=== PATIENT | female | born 1955 | race Caucasian/White ===

== ENCOUNTER → 2019-01-13 | Outpatient (CLI) | payer BC ==
[~2019-01-13] MED LIST: Iopamidol 612 MG/ML 50 ML SDV IVPUSH ONE; Lidocaine 1% 30 ML SDV INJECT ONE; methylPREDNISolone Acetate 40 MG/ML SDV INJECT ONE
--- NOTE | 2019-01-13 13:41 | CR ---
CLINICAL HISTORY: 63-year-old female with bilateral hip pain (L>R). TECHNIQUE: Patient counseled regarding the hip injection procedure including attendant risks of infection, pain, bleeding, contrast reaction. Employing sterile technique and 1% Xylocaine skin anesthesia a 22-gauge needle was placed in the left hip joint (third pass, fluoroscopic guidance) and after confirming intra-articular location (nonionic Isovue contrast) a total of 5 cc 1% lidocaine +80 mg Depo-Medrol was satisfactorily introduced into the left hip joint. Spot films recorded in the PACS system [place], [place] for record. Patient tolerated the procedure extremely well and left the department in stable condition with instructions to observe for any signs of post procedural infection and to keep daily calendar or log regarding postinjection symptomatology. CONCLUSION: Satisfactory left hip injection.
== END ==
LOC: DL.DI 09:05
PROVIDERS: ATTEND Orthopaedic Surgery
DX: M16.12 Unilateral primary osteoarthritis, left hip (principal)
CPT/HCPCS: 20610; 77002; J1030; J2001; Q9967

== ENCOUNTER 2024-09-16 07:18 | Day surgery (SDC) | payer MEDICARE, BC ==
[2024-09-16] MEDS: Dextrose 5%-0.45% NaCl 1,000 ML IV SCH (07:42)
[2024-09-16] MEDS ORDERED: fentaNYL 100 MCG/2 ML SDV ONE (07:45)
[2024-09-16] MEDS ORDERED: fentaNYL 100 MCG/2 ML SDV IV ONE (07:45)
[2024-09-16] MEDS ORDERED: Midazolam 1 MG/ML 2 ML SDV IV ONE (07:45)
[2024-09-16] MEDS ORDERED: Midazolam 1 MG/ML 2 ML SDV ONE (07:45)
[2024-09-16] MEDS: fentaNYL 100 MCG/2 ML SDV IV ONE ×5 (09:15→09:34)
[2024-09-16] MEDS: Midazolam 1 MG/ML 2 ML SDV IV ONE ×6 (09:16→09:23)
== END 2024-09-16 11:33 | disposition home or self-care (01) ==
LOC: DL.ENDO 07:18
PROVIDERS: ATTEND Internal Medicine Gastroenterology
DX: Z12.11 Encounter for screening for malignant neoplasm of colon (principal); D12.8 Benign neoplasm of rectum
CPT/HCPCS: 45380; J2250; J3010; J7799

== ENCOUNTER 2024-09-21 08:02 | Emergency (ER) | payer MEDICARE, BC ==
[2024-09-21 08:40] LABS: BASOPHILS PERCENT AUTO 0.3 % (0.0-1.0); EOSINOPHILS PERCENT AUTO 5.6 % (1.0-3.0); HEMATOCRIT 38.9 % (37.0-47.0); LYMPHOCYTES PERCENT AUTO 36.8 % (20.5-50.1); MEAN CORPUSCULAR HEMOGLOBIN 29.5 pg (27.0-34.0); MEAN CORPUSCULAR HGB CONC 33.4 g/dL (33.0-35.0); MEAN CORPUSCULAR VOLUME 88.2 fL (80-100); MONOCYTES PERCENT AUTO 9.3 % (2-8); PLATELET COUNT,PLT 161 10^3/uL (150-450); RED BLOOD CELL COUNT 4.41 10^6/uL (4.2-5.4); WHITE BLOOD CELL COUNT,WBC 3.6 10^3/uL (5.0-10.0)
[2024-09-21 08:55] LABS: PROTHROMBIN TIME 10.4 SEC (9.0-12.0)
[2024-09-21 09:01] LABS: ALBUMIN 3.3 g/dL (3.4-5.0); ANION GAP 11.9 mEq/L (7-13); BILIRUBIN TOTAL 0.5 mg/dL (0.2-1.0); BUN/CREATININE RATIO 16.2 (No establ ref range); CALCIUM 8.6 mg/dL (8.5-10.1); CREATININE 0.74 mg/dL (0.55-1.02); POTASSIUM,K 3.9 mmol/L (3.5-5.1); PROTEIN TOTAL,TP 6.5 g/dL (6.4-8.2)
[2024-09-21 09:02] LABS: A/G RATIO 1.03
== END 2024-09-21 09:47 | disposition home or self-care (01) ==
LOC: DL.ED 08:02
DX: K62.5 Hemorrhage of anus and rectum (principal); Z79.899 Other long term (current) drug therapy
CPT/HCPCS: 36415; 80053; 85025; 85610; 99283